=== PATIENT | female | born 1980 | race Caucasian/White ===

== ENCOUNTER 2019-12-06 11:19 | Emergency (ER) | payer OTHER ==
[~2019-12-06] VITALS: Ht 162.6 cm; Wt 107.5 kg
[2019-12-06 11:25] VITALS: BP 177/108
--- NOTE | 2019-12-06 11:28 | NUR ---
Patient ambulated to bed 7. RN evaluating patient at bedside.
--- NOTE | 2019-12-06 11:34 | NUR ---
Dr. Madrid is evaluating the patient at bedside.
[2019-12-06 11:39] VITALS: BP 177/108
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
--- NOTE | 2019-12-06 11:57 | NUR ---
RAD AT BEDSIDE
[2019-12-06] MEDS ORDERED: BACITRACIN OINT 500 UNITS/GM PKT TP ONE (12:04)
--- NOTE | 2019-12-06 12:34 | NUR ---
Dr. Madrid is evaluating the patient at bedside.
[2019-12-06] MEDS ORDERED: KETOROLAC 60 MG/2 ML VIAL IM ONE (12:35)
--- NOTE | 2019-12-06 13:10 | NUR ---
Pt discharged by Dr. Madrid, all instructions were given and explained by Dr. Madrid.
== END 2019-12-06 13:00 | disposition home or self-care (01) ==
LOC: MED 11:19
DX: M25.522 Pain in left elbow (principal); I10 Essential (primary) hypertension; K75.89 Other specified inflammatory liver diseases; V49.9XXA Car occupant (driver) (passenger) injured in unspecified traffic accident, initial encounter; Y93.89 Activity, other specified; Y92.89 Other specified places as the place of occurrence of the external cause; Y99.8 Other external cause status
CPT/HCPCS: 73070; 90471; 90715; 96372; 99284; J1885

== ENCOUNTER 2019-12-28 02:49 | Emergency (ER) | payer OTHER ==
[~2019-12-28] VITALS: Ht 162.6 cm; Wt 108.6 kg
[2019-12-28 02:55] VITALS: BP 187/116
--- NOTE | 2019-12-28 03:00 | NUR ---
DR PALM NOTIFIED ABOUT PT BP
--- NOTE | 2019-12-28 03:01 | NUR ---
PT TAKEN TO BED 6
--- NOTE | 2019-12-28 03:04 | NUR ---
Dr. Schmidt examining patient.
--- NOTE | 2019-12-28 03:12 | NUR ---
NO NURSING INTERVENTIONS NEEDED
[2019-12-28 03:15] VITALS: BP 187/116
--- NOTE | 2019-12-28 03:15 | NUR ---
Patient discharged with v/s stable. Written and verbal after care instructions given and explained. Patient alert, oriented and verbalized understanding of instructions. Ambulatory with steady gait. All questions addressed prior to discharge. ID band removed. Patient advised to follow up with PMD. Rx of LISINOPRIL, KEFLEX, PREDNISONE given. Patient educated on indication of medication including possible reaction and side effects. Opportunity to ask questions provided and answered.
== END 2019-12-28 03:15 | disposition home or self-care (01) ==
LOC: MED 02:49
DX: L03.116 Cellulitis of left lower limb (principal); L03.115 Cellulitis of right lower limb; R21 Rash and other nonspecific skin eruption; I10 Essential (primary) hypertension
CPT/HCPCS: 99283

== ENCOUNTER 2021-03-08 07:52 | Emergency (ER) | payer OTHER ==
[~2021-03-08] VITALS: Ht 162.6 cm; Wt 105.2 kg
[2021-03-08 08:02] VITALS: BP 152/98
--- NOTE | 2021-03-08 08:06 | NUR ---
TENT 1
[2021-03-08] MEDS ORDERED: ONDANSETRON 4 MG ODT PO ONE (08:25)
--- NOTE | 2021-03-08 08:29 | NUR ---
Jai varela in ED - 03/08/21 at 0835 by [email or web address] patient ambulated to bed 2. EKG AT BEDSIDE.
--- NOTE | 2021-03-08 08:35 | NUR ---
Jai varela in ED - 03/08/21 at 0835 by [email or web address] patient ambulated to bed 2. EKG AT BEDSIDE.
--- NOTE | 2021-03-08 08:35 | NUR ---
patient ambulated to bed 10. EKG AT BEDSIDE.
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
--- NOTE | 2021-03-08 08:45 | NUR ---
IV ESTABLISHED TO LEFT HAND 20G, GOOD BLOOD RETURN, COLLECTED BLOOD, COLLECTED JORDIN ROSARIO, JORDIN LUZ, INFL A&B GAVE TO [place] [employer] BRIM CURLER AT PT BEDSIDE.
[2021-03-08 08:56] LABS: HEMATOCRIT 36.7 % (36-48); HEMOGLOBIN 12.6 g/dL (12.0-16.0); MEAN CORPUSCULAR HEMOGLOBIN 30 pg (27-31); MEAN CORPUSCULAR HGB CONC 34 g/dL (33-37); MEAN CORPUSCULAR VOLUME 86.6 fL (80-94); PLATELET COUNT (AUTO) 235 K/uL (140-450); RED BLOOD CELL COUNT(AUTO) 4.24 MIL/uL (4.20-5.40); RED CELL DISTRIBUTION WIDTH 14.2 % (11.6-13.7); WHITE BLOOD COUNT (AUTO) 10.9 K/uL (4.8-10.8)
[2021-03-08] MEDS: IBUPROFEN 800 MG TAB PO ONE (08:58)
[2021-03-08] MEDS: NACL 0.9% 1,000 ML IV ONE (08:59)
[2021-03-08] MEDS: ONDANSETRON 4 MG/2 ML VIAL IVP ONE (08:59)
--- NOTE | 2021-03-08 09:00 | NUR ---
DIRECTOR OF COMPLIANCE AT PT BEDSIDE.
[2021-03-08 09:04] LABS: ANION GAP 17.1 (8-16); CREATININE 0.8 mg/dL (0.6-1.3); POTASSIUM 4.1 mmol/L (3.5-5.1)
[2021-03-08 09:10] LABS: ALBUMIN 2.9 g/dL (3.4-5.0); TOTAL BILIRUBIN 0.9 mg/dL (0.0-1.0)
--- NOTE | 2021-03-08 10:02 | NUR ---
PT RESTING, VISIBLE EQUAL RISE AND FALL OF CHEST, VSS, WILL CONTINUE TO MONITOR.
[2021-03-08] MEDS ORDERED: AZIT250T11 PO (10:13)
--- NOTE | 2021-03-08 10:16 | NUR ---
PT AMBULATED TO RESTROOM WITH A STEADY GAIT.
--- NOTE | 2021-03-08 10:19 | NUR ---
PT AMBULATED TO ER BED 10 WITH A STEADY GAIT.
[2021-03-08] MEDS: AZITHROMYCIN 250 MG TAB PO ONE (10:24)
[2021-03-08 10:38] VITALS: BP 136/84
[2021-03-08 10:38] LABS: LYMPHOCYTES % (MANUAL) 11 % (20-46); MONOCYTES % (MANUAL) 10 % (5-12)
--- NOTE | 2021-03-08 10:39 | NUR ---
Patient discharged with v/s stable. Written and verbal after care instructions given PNEUMONIA and explained. Patient alert, oriented and verbalized understanding of instructions. Ambulatory with steady gait. All questions addressed prior to discharge. ID band removed. Patient advised to follow up with PMD. Rx of AZITHROMYCIN given. Patient educated on indication of medication including possible reaction and side effects. Opportunity to ask questions provided and answered.
== END 2021-03-08 10:40 | disposition home or self-care (01) ==
LOC: MED 07:52
DX: J18.9 Pneumonia, unspecified organism (principal); I10 Essential (primary) hypertension; Z20.822 Contact with and (suspected) exposure to COVID-19; R00.0 Tachycardia, unspecified; Z79.2 Long term (current) use of antibiotics
CPT/HCPCS: 36415; 71045; 80053; 85025; 87426; 87804; 93005; 96361; 96374; 99285; J2405; J7030; Q0092; U0003

== ENCOUNTER 2022-07-25 10:10 | Emergency (ER) | payer OTHER ==
[~2022-07-25] VITALS: Ht 162.6 cm; Wt 103.4 kg
[~2022-07-25 10:10] MED LIST: AZIT250T11 PO
[2022-07-25 10:13] VITALS: BP 147/84
[2022-07-25] MEDS ORDERED: KETOROLAC 15 MG/ML VIAL IM ONE (11:15)
[2022-07-25] MEDS ORDERED: IBUP-2213 PO (11:22)
== END 2022-07-25 11:46 | disposition home or self-care (01) ==
LOC: MED 10:10
DX: S83.8X1A Sprain of other specified parts of right knee, initial encounter (principal); S63.591A Other specified sprain of right wrist, initial encounter; V89.9XXA Person injured in unspecified vehicle accident, initial encounter; Y93.89 Activity, other specified; Y92.89 Other specified places as the place of occurrence of the external cause; Y99.8 Other external cause status
CPT/HCPCS: 73110; 73562; 96372; 99284; J1885